=== PATIENT | female | born 2000 | race Caucasian/White ===

== ENCOUNTER 2020-07-11 18:20 | Emergency (ER) | payer SELFPAY ==
--- OUTSIDE RECORDS SUMMARY | 2020-07-11 18:22 | XMS REPORT | Continuity of Care Document ---
:2000 Author Organization [facility] t Address [address] [place] [address] Dr. Terrell. [address] [place] [address] Care Team Providers Name Role Phone Unavailable Unavailable Unavailable Problems This patient has no known problems. Allergies, Adverse Reactions, Alerts This patient has no known allergies or adverse reactions. Medications This patient has no known medications. Procedures This patient has no known procedures. Results This patient has no known results.
[2020-07-11] MEDS ORDERED: IBUPROFEN 400 MG TAB ONE (19:59)
[2020-07-11] MEDS ORDERED: IBUPROFEN 200 MG TAB PO ONE (19:59)
[2020-07-11 20:00] LABS: Urine Blood TRACE (NEG); Urine Glucose NEGATIVE (NEG); Urine Protein NEGATIVE (NEG); Urine Specific Gravity 1.015 (1.005-1.030)
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
[2020-07-11] MEDS ORDERED: ACETAMINOPHEN 500 MG TAB ONE (20:47)
[2020-07-11] MEDS ORDERED: NA CHLORIDE 0.9% 1,000 ML ONE (20:47)
[2020-07-11 20:53] LABS: Absolute Lymphocytes (CBC) 2.6 K/uL (0.7-4.9); Basophils % 0.5 % (0-1.3); Hematocrit 41.8 % (36.0-45.0); Lymphocytes % 31.6 % (15.3-44.8); MPV 8.2 fL (7.6-11.3); RBC Red Blood Cell Count 4.76 M/uL (3.86-4.86)
[2020-07-11 21:01] LABS: Potassium 3.8 mmol/L (3.5-5.1)
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
[2020-07-11] MEDS ORDERED: KETOROLAC 30 MG/ML INJ ONE (21:55)
[2020-07-13 12:36] VITALS: BP 138/82; O2SAT 99
[2020-07-13 12:37] VITALS: TEMP 98.6
== END 2020-07-11 22:00 | disposition home or self-care (01) ==
LOC: ER 18:20
DX: S16.1XXA Strain of muscle, fascia and tendon at neck level, initial encounter (principal); M25.552 Pain in left hip; M25.522 Pain in left elbow; M25.562 Pain in left knee; M25.561 Pain in right knee; V49.49XA Driver injured in collision with other motor vehicles in traffic accident, initial encounter; Y92.481 Parking lot as the place of occurrence of the external cause
CPT/HCPCS: 36415; 70450; 71260; 72125; 74177; 80048; 81003; 81025; 82565; 85025; 96361; 96374; 99284; J7030; Q9967